=== PATIENT | female | born 1960 | race African-American/Black ===

== ENCOUNTER 2020-07-03 10:25 | Outpatient (REF) | payer OTHER, SELFPAY ==
[2020-07-03 11:52] LABS: Hematocrit 38.9 % (37-47); Hemoglobin 12.2 g/dl (12.0-16.0); Mean Corpuscular HGB Conc 31.4 g/dl (31.0-35.0); Mean Corpuscular Hemoglobin 30.6 pg (27.0-33.0); Mean Corpuscular Volume 97.5 fL (80-98); Mean Platelet Volume 9.3 fL (9.4-12.3); Platelet Count 352 X10*3/uL (160-400); Red Blood Count 3.99 X10*6/uL (4.20-5.50); Red Cell Distribution Width 13.8 % (11.0-16.0); White Blood Count 4.2 X10*3/uL (4.8-10.8)
[2020-07-03 11:56] LABS: Estimated Average Glucose 169 mg/dL; Hemoglobin A1c % 7.5 %
[2020-07-03 12:07] LABS: Alanine Aminotransferase 12 U/L (0-31); Albumin Level 4.2 g/dL (3.5-5.0); Alkaline Phosphatase 86 U/L (39-117); Anion Gap 14 (12-20); Aspartate Amino Transferase 14 U/L (5-31); Bilirubin Direct 0.2 mg/dL (0.0-0.5); Bilirubin Total 0.3 mg/dL (0.0-1.0); Blood Urea Nitrogen 17 mg/dL (9-16); Calcium 8.1 mg/dL (8.4-10.2); Carbon Dioxide 27 mmol/L (22-29); Chloride 105 mmol/L (96-108); Cholesterol 175 mg/dL; Estimated Glomerular Filt Rate 44; Glucose Random 121 mg/dL (60-115); HDL Cholesterol 32 mg/dL; LDL Cholesterol Calculated 117 mg/dl; Potassium 3.8 mmol/l (3.3-5.1); Sodium 142 mmol/L (135-145); Total Protein 7.4 g/dL (6.5-8.0); Triglycerides 134 mg/dL
== END 2020-07-03 10:26 | disposition home or self-care (01) ==
LOC: HO.LAB 10:25
PROVIDERS: PCP Internal Medicine; Visit Provider Internal Medicine
DX: E11.9 Type 2 diabetes mellitus without complications (principal); R21 Rash and other nonspecific skin eruption
CPT/HCPCS: 36415; 80048; 80061; 80076; 83036; 85027

== ENCOUNTER 2021-05-17 05:35 | Emergency (ER) | payer OTHER, SELFPAY ==
--- NOTE | ~2021-05-17 | XR_ITS ---
EXAMINATION: XR CHEST CLINICAL INFORMATION: Shortness of breath COMPARISON: January 07, 2017 TECHNIQUE: 2 views of the chest were obtained. FINDINGS: No significant abnormality is noted involving the heart, lungs, mediastinum, bony thorax or soft tissues. XR/XR chest 2V IMPRESSION: No acute disease.
[2021-05-17 05:40] VITALS: BP 152/74; PULSE 85; RESP 18; TEMP 37.1; O2SAT 97; BMI 33.1
[2021-05-17 06:35] LABS: COVID-19 Test Negative (Negative); IDNOW Serial# 9DD0AD1C
--- NOTE | 2021-05-17 07:24 | ECG_ITS ---
Test Reason : sob Blood Pressure : / mmHG Vent. Rate : 067 BPM Atrial Rate : 067 BPM P-R Int : 238 ms QRS Dur : 082 ms QT Int : 424 ms P-R-T Axes : 029 -19 -18 degrees QTc Int : 448 ms Sinus rhythm with 1st degree A-V block Minimal voltage criteria for LVH, may be normal variant ( R in aVL ) Nonspecific T wave abnormality Abnormal ECG T wave amplitude has decreased in Lateral leads Referred By: Niraj Taylor Electronically Signed By:KEYLA AREVALO MD
--- NOTE | 2021-05-17 07:25 | ED_ITS ---
HPI - General Adult General Chief complaint: Upper Respiratory Symptoms Stated complaint: SOB Not feeling well Time Seen by Provider: 05/17/21 07:08 Source: patient Mode of arrival: ambulatory Limitations: no limitations History of Present Illness HPI narrative: 60-year-old female who presents emergency department for evaluation of shortness of breath, dyspnea on exertion, ?feeling off ?. Patient states for the past week 1-2 weeks she has been feeling off. She states that she feels like her eyes are moving and she feels dizzy especially with change in position. She states she has an occasional pressure-like sensation in her head and in the back of her neck. She denied fever, chills, chest pain, rhinorrhea, cough, abdominal pain, nausea, vomiting or diarrhea. She states that she followed up with her eye doctor who thought she might have Graves disease and she was seen by her qa analyst who felt that her symptoms were not related to her hypothyroidism. The patient states that over the past 1-2 days she has been feeling short of breath at rest and having dyspnea on exertion. The patient states that she had a COVID-19 infection in October of 2019 and she had a Marbin Marbin COVID-19 sometime earlier this year. The patient states that she has been very compliant with a diabetic diet and shakes her glucose frequency, in reviewing her glucose monitor point of care glucose values, her glucoses ranged from 80 to 160 with majority of her t glucose values in the 100- 120 range. Related Data Previous Rx's Medication Instructions Recorded triamcinolone acetonide 0.5 % 1 appl TOPICAL BID #15 g 07/03/20 topical ointment metoprolol tartrate 25 mg tablet 25 mg PO TID #270 cap 12/08/20 metformin 750 mg tablet,extended 750 mg PO DAILY #90 cap 01/05/21 release 24 hr simvastatin 20 mg tablet 20 mg PO QPM #90 tab 01/05/21 hydrochlorothiazide 25 mg tablet 25 mg PO QAM #90 tab 01/14/21 levothyroxine 125 mcg tablet 125 mcg PO QAM #90 tab 01/14/21 glipizide 5 mg tablet 5 mg PO BID #180 cap 05/15/21 meclizine 25 mg tablet (Dramamine 25 mg PO TID PRN #20 tab 05/17/21 Less Drowsy) triamcinolone acetonide 0.5 % 1 appl TOPICAL BID 14 Days #30 g 05/17/21 topical cream Allergies Allergy/AdvReac Type Severity Reaction Status Date / Time No Known Allergies Allergy Verified 07/18/20 13:10 [No Known Allergies*] Review of Systems Review of Systems: Yes all other systems are reviewed and are negative [facility] Past Medical History [facility] Narrative: Social history: The patient denies tobacco use. She denies alcohol use. She denies drug use. Medical History Benign hypertension Class 3 severe obesity due to excess calories with body mass index (BMI) of 40.0 to 44.9 in adult Controlled diabetes mellitus Elevated low-density lipoprotein level Hypothyroidism, unspecified Surgical History History of D&C Family History Family History Father Diabetes Hypertension Mother Diabetes Acute kidney failure Hypertension Brother No problems noted. Social History Social History Alcohol intake: never Smoked in Last 30 Days: No Use of substances other than those prescribed or required for medical reasons: No Advance Directives: No Advance Directives Information Provided: No Patient : No Physical Exam Vital Signs: Vital Signs: Last Vital Signs Temp 98.7 F 05/17/21 05:40 Pulse 85 05/17/21 05:40 Resp 18 05/17/21 05:40 BP 152/74 H 05/17/21 05:40 Pulse Ox 97 05/17/21 05:40 Body Mass Index 33.1 Const: Other: Very pleasant cooperative female patient, answers all questions appropriately does not appear to be in distress. HENMT: Head: Yes normal to inspection, Yes normocephalic and Yes atraumatic Ears: external ears normal General nose exam: Normal external nose present Face and sinus: Yes normal facial exam Mouth: Normal oral and palatal mucosa present Throat: Yes posterior oropharynx normal Eyes: General: appearance normal, both eyes and all related structures Pupils: Equal, round and reactive pupils present Neck: Neck: Yes normal visual inspection, Yes no lymphadenopathy, Yes trachea midline and Yes supple Chest: Chest palpation & inspection: normal inspection of the chest and normal palpation of entire chest wall Resp: Effort & Inspection: normal respiratory effort and able to speak in complete sentences Auscultation: clear to auscultation bilaterally Cardio: Rate: regular rate Rhythm: regular rhythm Heart sounds: S1 normal heart sound present, S2 normal heart sound present and no murmurs GI: Inspection: Yes normal to inspection Palpation (GI): Soft to palpation, nontender and no guarding Auscultation: normal bowel sounds : General: Yes no CVA tenderness Back/Spine/Pelvis: Back: no CVA tenderness Skin: General skin exam: no rashes or lesions noted Neuro: Cranial nerves: Yes CN's II-XII intact bilaterally and Yes Equal, round and reactive pupils present Cognition (Neuro): normal cognition Motor exam (neuro): 5/5 motor strength present throughout Extrem: General: Yes normal to inspection Psych: Appearance: grossly normal Speech and movement: Normal speech and movement present Affect: normal affect Attitude: cooperative Thought process: Normal thought process present Thought content: Normal thought content present Course Course Course Narrative: 60-year-old female who presents emergency department for evaluation of shortness of breath, dyspnea on exertion headache, dizziness and generally feeling off. The patient's vital signs did reveal an elevated blood pressure of 152/74 otherwise was unremarkable with an O2 saturation of 97% on room air. Her physical examination was normal. Patient's COVID-19 test was negative. Given her age and comorbid conditions I did order a workup to include CBC, CMP, D-dimer, troponin, TSH with reflex of T4, urinalysis. 0915: The patient's laboratory evaluation was unremarkable except for a low white blood count of 3000. TSH was normal at 1.58. Troponin and D-dimer were below detectable limits. Chest x-ray revealed no acute cause for shortness of breath. Twelve EKG was unremarkable as well. I did discuss these findings with the patient. I suspect the patient has a viral syndrome and may be having some inner ear issues such as vertigo. The patient was started on meclizine 25 mg 3 times a day as needed for symptoms. She was given printed and verbal instructions and discharged home. The patient states that she had a rash on her arms that improved with triamcinolone cream, she now has the same rash on her hands and is requesting a refill for the triamcinolone cream. Medical Decision Making Lab Data Result diagrams: 05/17/21 07:54 05/17/21 07:54 Labs: Lab Results 05/17/21 05/17/21 05/17/21 Range/Units 05:51 07:54 07:54 WBC 3.0 L (4.8-10.8) X10*3/uL RBC 3.87 L (4.20-5.50) X10*6/uL Hgb 12.1 (12.0-16.0) g/dl Hct 37.1 (37-47) % MCV 95.9 (80-98) fL MCH 31.3 (27.0-33.0) pg MCHC 32.6 (31.0-35.0) g/dl RDW 13.3 (11.0-16.0) % Plt Count 264 (160-400) X10*3/uL MPV 8.7 L (9.4-12.3) fL Immature Gran % (Auto) 0.3 (0.0-0.4) % Neut % (Auto) 54.6 (45-73) % Lymph % (Auto) 32.9 (20-40) % Pacific % (Auto) 9.2 (2-11) % Eos % (Auto) 2.0 (0-4) % Baso % (Auto) 1.0 (0-2) % Lymph # (Auto) 1.0 L (1.2-4.9) X10*3/uL Pacific # (Auto) 0.3 (0.1-1.2) X10*3/uL Eos # (Auto) 0.1 (0.0-0.4) X10*3/uL Baso # (Auto) 0.0 (0.0-0.2) X10*3/uL Abs Immat Gran (auto) 0.01 (0.00-0.03) X10*3/uL Absolute Neuts (auto) 1.6 L (2.0-8.3) X10*3/uL Absolute Nucleated RBC 0.000 (0.0-0.012) X10*3/uL Nucleated RBC % (auto) 0.0 (0.0-0.2) /100WBC D-Dimer NG/ML Sodium 139 (135-145) mmol/L Potassium 3.8 (3.3-5.1) mmol/L Chloride 104 (96-108) mmol/L Carbon Dioxide 25 (22-29) mmol/L Anion Gap 14 (12-20) BUN 12 (9-16) mg/dL Creatinine 0.93 (0.5-1.4) mg/dL Estim Creat Clear Calc 71.3 Estimated GFR > 60 Random Glucose 136 H (60-115) mg/dL Calcium 8.5 (8.4-10.2) mg/dL Total Bilirubin 0.6 (0.0-1.0) mg/dL AST 14 (5-31) U/L ALT 9 (0-31) U/L Alkaline Phosphatase 74 (39-117) U/L Troponin I High Sens (<3.5-17.0) ng/L Total Protein 7.1 (6.5-8.0) g/dL Albumin 3.9 (3.5-5.0) g/dL TSH 1.58 (0.32-4.0) uIU/mL COVID-19 (JOSE) Negative (Negative) COVID-19 Clin Com See Note 05/17/21 05/17/21 Range/Units 07:54 07:54 WBC (4.8-10.8) X10*3/uL RBC (4.20-5.50) X10*6/uL Hgb (12.0-16.0) g/dl Hct (37-47) % MCV (80-98) fL MCH (27.0-33.0) pg MCHC (31.0-35.0) g/dl RDW (11.0-16.0) % Plt Count (160-400) X10*3/uL MPV (9.4-12.3) fL Immature Gran % (Auto) (0.0-0.4) % Neut % (Auto) (45-73) % Lymph % (Auto) (20-40) % Pacific % (Auto) (2-11) % Eos % (Auto) (0-4) % Baso % (Auto) (0-2) % Lymph # (Auto) (1.2-4.9) X10*3/uL Pacific # (Auto) (0.1-1.2) X10*3/uL Eos # (Auto) (0.0-0.4) X10*3/uL Baso # (Auto) (0.0-0.2) X10*3/uL Abs Immat Gran (auto) (0.00-0.03) X10*3/uL Absolute Neuts (auto) (2.0-8.3) X10*3/uL Absolute Nucleated RBC (0.0-0.012) X10*3/uL Nucleated RBC % (auto) (0.0-0.2) /100WBC D-Dimer < 200 NG/ML Sodium (135-145) mmol/L Potassium (3.3-5.1) mmol/L Chloride (96-108) mmol/L Carbon Dioxide (22-29) mmol/L Anion Gap (12-20) BUN (9-16) mg/dL Creatinine (0.5-1.4) mg/dL Estim Creat Clear Calc Estimated GFR Random Glucose (60-115) mg/dL Calcium (8.4-10.2) mg/dL Total Bilirubin (0.0-1.0) mg/dL AST (5-31) U/L ALT (0-31) U/L Alkaline Phosphatase (39-117) U/L Troponin I High Sens < 3.5 (<3.5-17.0) ng/L Total Protein (6.5-8.0) g/dL Albumin (3.5-5.0) g/dL TSH (0.32-4.0) uIU/mL COVID-19 (JOSE) (Negative) COVID-19 Clin Com ECG Data Attestation: I personally reviewed and interpreted this ECG as follows: Interpretation: 0731: Sinus rhythm rate of 67, first-degree AV block with NJ interval of 235 milliseconds, normal QRS of 82 milliseconds, no ST segment elevation, no ST segment depression, no PACs, no PVCs, no Q-waves. Discharge Plan Discharge Clinical Impression: Viral infection, Vertigo, Acute dyspnea, Rash of both hands Patient Disposition: Home, Self-Care Instructions: Vertigo (ED), Viral Syndrome (ED) Additional Instructions: Your laboratory evaluation was unremarkable. Your EKG was normal. Your chest x-ray did not reveal any signs of pneumonia or a cause for her shortness of breath. At this time I suspect that you have a virus that is causing your symptoms. Sometimes a virus can affect the inner ear and cause lightheadedness and dizziness. I am going to treat you with Dramamine (meclizine) 25 mg pills, take 1 pill 3 times a day for the next 2-3 days to see if this improves her symptoms. Follow-up with your doctor in 2 days. Please return to the emergency department if your symptoms get worse or if you develop any symptoms that are concerning to you. Prescriptions: New meclizine [Dramamine Less Drowsy] 25 mg tablet 25 mg PO TID PRN (Reason: dizziness) Qty: 20 RF: 0 triamcinolone acetonide 0.5 % cream 1 appl topical BID 14 Days Qty: 30 RF: 0 No Action metoprolol tartrate 25 mg tablet 25 mg PO TID Qty: 270 RF: 1 simvastatin 20 mg tablet 20 mg PO QPM Qty: 90 RF: 1 metformin 750 mg tablet extended release 24 hr 750 mg PO DAILY Qty: 90 RF: 1 hydrochlorothiazide 25 mg tablet 25 mg PO QAM Qty: 90 RF: 1 levothyroxine 125 mcg tablet 125 mcg PO QAM Qty: 90 RF: 1 glipizide 5 mg tablet 5 mg PO BID Qty: 180 RF: 1 triamcinolone acetonide 0.5 % ointment 1 appl topical BID Qty: 15 RF: 1 Discharge Date/Time: 05/17/21 09:32
[2021-05-17 07:59] LABS: MANUAL DIFF FLAG NO
[2021-05-17 08:03] LABS: Eosinophils Absolute Auto 0.1 X10*3/uL (0.0-0.4); Hematocrit 37.1 % (37-47); Hemoglobin 12.1 g/dl (12.0-16.0); Imm Gran Abs Auto 0.01 X10*3/uL (0.00-0.03); Imm Gran Pct Auto 0.3 % (0.0-0.4); Lymphocytes Percent Auto 32.9 % (20-40); Mean Corpuscular HGB Conc 32.6 g/dl (31.0-35.0); Mean Corpuscular Hemoglobin 31.3 pg (27.0-33.0); Mean Corpuscular Volume 95.9 fL (80-98); Mean Platelet Volume 8.7 fL (9.4-12.3); Monocytes Absolute Auto 0.3 X10*3/uL (0.1-1.2); Monocytes Percent Auto 9.2 % (2-11); Neutrophils Absolute Auto 1.6 X10*3/uL (2.0-8.3); Neutrophils Percent Auto 54.6 % (45-73); Platelet Count 264 X10*3/uL (160-400); Red Blood Count 3.87 X10*6/uL (4.20-5.50); Red Cell Distribution Width 13.3 % (11.0-16.0)
[2021-05-17 08:11] LABS: D Dimer < 200 NG/ML
[2021-05-17 08:20] LABS: Troponin-I High Sensitivity < 3.5 ng/L (<3.5-17.0)
[2021-05-17 08:23] LABS: Alanine Aminotransferase 9 U/L (0-31); Albumin Level 3.9 g/dL (3.5-5.0); Alkaline Phosphatase 74 U/L (39-117); Anion Gap 14 (12-20); Aspartate Amino Transferase 14 U/L (5-31); Bilirubin Total 0.6 mg/dL (0.0-1.0); Blood Urea Nitrogen 12 mg/dL (9-16); Calcium 8.5 mg/dL (8.4-10.2); Carbon Dioxide 25 mmol/L (22-29); Chloride 104 mmol/L (96-108); Creatinine Clr Calc Pharmacy 71.3; Estimated Glomerular Filt Rate > 60; Glucose Random 136 mg/dL (60-115); Potassium 3.8 mmol/L (3.3-5.1); Sodium 139 mmol/L (135-145); Total Protein 7.1 g/dL (6.5-8.0)
[2021-05-17 08:43] LABS: TSH reflex Free T4 1.58 uIU/mL (0.32-4.0)
== END 2021-05-17 09:32 | disposition home or self-care (01) ==
PROVIDERS: Emergency Provider Emergency Medicine Emergency Medical Services; PCP Internal Medicine
DX: B34.9 Viral infection, unspecified (principal); R21 Rash and other nonspecific skin eruption; R06.00 Dyspnea, unspecified; Z20.822 Contact with and (suspected) exposure to COVID-19; Z86.16 Personal history of COVID-19; Z79.899 Other long term (current) drug therapy
CPT/HCPCS: 36415; 71046; 80053; 84443; 84484; 85025; 85379; 87635; 93005; 99284

== ENCOUNTER 2021-05-24 09:30 | Emergency (ER) | payer OTHER, SELFPAY ==
--- NOTE | ~2021-05-24 | CT_ITS ---
EXAMINATION: CT HEAD WITHOUT CONTRAST CLINICAL INFORMATION: Dizziness for one week. Rule out stroke. COMPARISON: Previous PET/CT scan and brain MRI 2018 TECHNIQUE: Contiguous axial imaging was performed from the skull base to vertex without intravenous administration of contrast. This CT examination was performed using dose optimization techniques as appropriate, variously including the following: *Automated exposure control *Adjustment of mA and/or kV according to patient size (this includes techniques or standardized protocols for targeted exams where dose is matched to indication/reason for exam; i.e. extremities or head) *Use of iterative reconstruction technique DLP: 563 mGy-cm FINDINGS: There is no evidence of an extra-axial collection. There is no evidence of intra-axial or extra-axial hemorrhage. Ventricles and extra-axial CSF spaces are appropriate. Callejas-white matter differentiation is normal. No mass, mass effect or infarct is seen. On the sagittal reconstructed images, the cerebellar tonsils appear slightly low lying. This is similar to previous exams. There is a prominent left lacrimal gland. This is similar to previous exams as well. Bony structures are unremarkable. The paranasal sinuses, mastoid air cells and middle ears are clear. CT/CT head/brain wo con IMPRESSION: No acute intracranial findings and no change from previous exams.
[2021-05-24 09:39] VITALS: BP 120/80; BP 160/72; PULSE 76; PULSE 78; RESP 16; TEMP 37.1; O2SAT 98; BMI 38.6
--- NOTE | 2021-05-24 09:42 | ECG_ITS ---
Test Reason : dizziness Blood Pressure : / mmHG Vent. Rate : 077 BPM Atrial Rate : 077 BPM P-R Int : 226 ms QRS Dur : 080 ms QT Int : 380 ms P-R-T Axes : 076 -15 -16 degrees QTc Int : 430 ms Sinus rhythm with 1st degree A-V block Minimal voltage criteria for LVH, may be normal variant ( R in aVL ) Nonspecific T wave abnormality Left axis deviation Abnormal ECG No significant changes seen Referred By: Generic ED Physician Electronically Signed By:KEYLA AREVALO MD
[2021-05-24 11:00] VITALS: BP 154/73; PULSE 76; RESP 18; TEMP 36.1; O2SAT 98
[2021-05-24 11:01] VITALS: BP 149/73; PULSE 81; RESP 18
[2021-05-24 11:03] VITALS: BP 142/83; PULSE 92
--- NOTE | 2021-05-24 11:27 | ED.DIZZY ---
HPI - Dizziness General Chief Complaint: Dizziness Stated Complaint: DIZZY X'S 2 WEEKS Time Seen by Provider: 05/24/21 11:00 Source: patient Mode of arrival: ambulatory Limitations: no limitations History of Present Illness HPI Narrative: 60-year-old female who presents emergency department for evaluation of sudden onset of dizziness and a burning sensation in neck. The patient was seen in the emergency department by me on 05/17/2021 for evaluation of shortness of breath, dyspnea on exertion, feeling off and dizziness. The patient's evaluation included normal TSH, troponin, D-dimer, comprehensive metabolic panel. TSH was normal. WBC was slightly low at 3000. EKG was unremarkable. That time I suspect patient had a viral infection and labyrinthitis causing vertigo. Patient states that she took meclizine for approximately 2-3 days but did not change her dizziness if she stopped. She states that this morning she was watching TV at 8:30 a.m. when she had a sudden popping sensation her left ear and had a room spinning vertigo since sensation. She states that the dizziness has been constant and does not change with position change her head movement. She also developed a new sensation which she describes as a burning sensation located in her cervical spine. She states she has a history of a cervical syrinx detected on MRI in the past. She states that her vision feels ?foggy ?. She denied numbness, weakness, or loss of bowel or bladder control. She states she has had nausea associated with the dizziness but no other symptoms. She denied fever, chills, rhinorrhea, cough, chest pain. She states that her dyspnea on exertion and shortness of breath have improved from the previous visit. The patient received her influenza vaccine yesterday. Related Data Previous Rx's Medication Instructions Recorded metoprolol tartrate 25 mg tablet 25 mg PO TID #270 cap 12/08/20 metformin 750 mg tablet,extended 750 mg PO DAILY #90 cap 01/05/21 release 24 hr simvastatin 20 mg tablet 20 mg PO QPM #90 tab 01/05/21 hydrochlorothiazide 25 mg tablet 25 mg PO QAM #90 tab 01/14/21 levothyroxine 125 mcg tablet 125 mcg PO QAM #90 tab 01/14/21 glipizide 5 mg tablet 5 mg PO BID #180 cap 05/15/21 meclizine 25 mg tablet (Dramamine 25 mg PO TID PRN #20 tab 05/17/21 Less Drowsy) triamcinolone acetonide 0.5 % 1 appl TOPICAL BID 14 Days #30 g 05/17/21 topical cream diazepam 2 mg tablet 2 mg PO TID PRN #14 tab 05/24/21 meclizine 25 mg tablet (Dramamine 25 mg PO TID PRN #20 tab 05/24/21 Less Drowsy) Allergies Allergy/AdvReac Type Severity Reaction Status Date / Time No Known Allergies Allergy Verified 05/23/21 13:20 [No Known Allergies*] Review of Systems Review of Systems: Yes all other systems are reviewed and are negative REPLACED BY [facility] Past Medical History REPLACED BY [facility] Narrative: Social history: She denies tobacco, alcohol and drug use. Medical History Benign hypertension Class 3 severe obesity due to excess calories with body mass index (BMI) of 40.0 to 44.9 in adult Controlled diabetes mellitus Elevated low-density lipoprotein level Hypothyroidism, unspecified Surgical History History of D&C Family History Family History Father Diabetes Hypertension Mother Diabetes Acute kidney failure Hypertension Brother No problems noted. Social History Social History Housing: Apartment Alcohol intake: never Patient Tobacco Use Status: Never used Tobacco e-Cigarette/Vaping Use: Never Used Second Hand Smoke Exposure: No Advance Directives: Yes Advance Directives Information Provided: Yes Advance Directives on File: No service: No Current occupational status: retired Physical Exam Vital Signs: Vital Signs: Last Vital Signs Temp 102.6 F H 05/24/21 12:08 Pulse 92 05/24/21 11:03 Resp 18 05/24/21 11:01 BP 142/83 H 05/24/21 11:03 Pulse Ox 98 05/24/21 11:00 Body Mass Index 38.6 Const: General: cooperative and no acute distress Orientation/consciousness: oriented to person and oriented to place Limitations: no limitations HENMT: Head: Yes normal to inspection, Yes normocephalic and Yes atraumatic Ears: external ears normal General nose exam: Normal external nose present Face and sinus: Yes normal facial exam Mouth: Normal oral and palatal mucosa present Throat: Yes posterior oropharynx normal Eyes: General: appearance normal, both eyes and all related structures Pupils: Equal, round and reactive pupils present Neck: Neck: Yes normal visual inspection, Yes no lymphadenopathy, Yes trachea midline and Yes supple Chest: Chest palpation & inspection: normal inspection of the chest and normal palpation of entire chest wall Resp: Effort & Inspection: normal respiratory effort and able to speak in complete sentences Auscultation: clear to auscultation bilaterally Cardio: Rate: regular rate Rhythm: regular rhythm Heart sounds: S1 normal heart sound present, S2 normal heart sound present and no murmurs GI: Inspection: Yes normal to inspection Palpation (GI): Soft to palpation, nontender and no guarding Auscultation: normal bowel sounds : General: Yes no CVA tenderness Back/Spine/Pelvis: Back: no CVA tenderness Skin: General skin exam: no rashes or lesions noted Neuro: General: oriented to person and oriented to place Cranial nerves: Yes CN's II-XII intact bilaterally and Yes Equal, round and reactive pupils present Cognition (Neuro): normal cognition Motor exam (neuro): 5/5 motor strength present throughout Coordination: [id number] test normal, [id number] test normal, No sways with eyes open, Romberg test negative and other (Gait is normal) Extrem: General: Yes normal to inspection Psych: Appearance: grossly normal Speech and movement: Normal speech and movement present Affect: normal affect Attitude: cooperative Thought process: Normal thought process present Thought content: Normal thought content present Course Course Course Narrative: 60-year-old female who presents emergency department for evaluation intermittent dizziness x1 week with symptoms that became worse this morning at 8:30 a.m. with a new symptom of a burning sensation in her cervical spine. Patient was seen by me on 05/17/2021 with a negative workup as per the HPI. The patient's vital signs did reveal elevated blood pressure of 160/72 but the patient does have essential hypertension, vital signs were otherwise unremarkable. Patient's physical examination was normal without any focal neurologic findings or cerebellar findings. I ordered a CT scan of the head to rule out stroke, also ordered an EKG, CBC, CMP, troponin. Patient was ordered to get normal saline x1 L and meclizine 25 mg orally. 1416: The patient's laboratory evaluation was unremarkable. Patient's high sensitivity troponin was detectable at 3.5 but not elevated. The patient's [address] scan of the brain revealed no acute findings. I did discuss the workup with the patient, at this time I believe that her symptoms are still consistent with positional vertigo. The patient was advised to take meclizine 25 mg 3 times a day for 4 days. She is also given prescription for Valium 3 mg, 1 pill every 6 hours as needed for dizziness not relieved by the meclizine. She was given verbal and printed instructions and discharged home. MDM - Dizziness Lab Data Result diagrams: 05/24/21 11:36 05/24/21 11:36 Labs: Lab Results 05/24/21 05/24/21 05/24/21 Range/Units 11:36 11:36 11:36 WBC 3.9 L (4.8-10.8) X10*3/uL RBC 3.72 L (4.20-5.50) X10*6/uL Hgb 11.9 L (12.0-16.0) g/dl Hct 36.4 L (37-47) % MCV 97.8 (80-98) fL MCH 32.0 (27.0-33.0) pg MCHC 32.7 (31.0-35.0) g/dl RDW 13.3 (11.0-16.0) % Plt Count 262 (160-400) X10*3/uL MPV 8.6 L (9.4-12.3) fL Immature Gran % (Auto) 0.3 (0.0-0.4) % Neut % (Auto) 64.2 (45-73) % Lymph % (Auto) 25.2 (20-40) % Reeves % (Auto) 6.7 (2-11) % Eos % (Auto) 3.1 (0-4) % Baso % (Auto) 0.5 (0-2) % Lymph # (Auto) 1.0 L (1.2-4.9) X10*3/uL Reeves # (Auto) 0.3 (0.1-1.2) X10*3/uL Eos # (Auto) 0.1 (0.0-0.4) X10*3/uL Baso # (Auto) 0.0 (0.0-0.2) X10*3/uL Abs Immat Gran (auto) 0.01 (0.00-0.03) X10*3/uL Absolute Neuts (auto) 2.5 (2.0-8.3) X10*3/uL Absolute Nucleated RBC 0.000 (0.0-0.012) X10*3/uL Nucleated RBC % (auto) 0.0 (0.0-0.2) /100WBC Sodium 138 (135-145) mmol/L Potassium 3.8 (3.3-5.1) mmol/L Chloride 106 (96-108) mmol/L Carbon Dioxide 23 (22-29) mmol/L Anion Gap 13 (12-20) BUN 18 H (9-16) mg/dL Creatinine 1.14 (0.5-1.4) mg/dL Estim Creat Clear Calc 63.2 Estimated GFR 49 Random Glucose 110 (60-115) mg/dL Calcium 8.1 L (8.4-10.2) mg/dL Total Bilirubin 0.2 (0.0-1.0) mg/dL AST 13 (5-31) U/L ALT 9 (0-31) U/L Alkaline Phosphatase 76 (39-117) U/L Troponin I High Sens 3.5 (<3.5-17.0) ng/L Total Protein 7.1 (6.5-8.0) g/dL Albumin 3.9 (3.5-5.0) g/dL ECG Data Interpretation: 0947: Sinus rhythm with a first-degree AV block, rate of 77, NC interval was prolonged to 226 milliseconds. QRS duration QTC intervals are normal. No ST segment elevation, no ST segment depression, nonspecific T-wave flattening the 3 through V6, no PACs, no PVCs. Discharge Plan Discharge Clinical Impression: Benign paroxysmal positional vertigo Patient Disposition: Home, Self-Care Instructions: Benign Paroxysmal Positional Vertigo (ED) Additional Instructions: Your laboratory evaluation today was unremarkable Your EKG was normal. The CT scan of your brain without IV contrast did not reveal any significant abnormalities which is reassuring. Your symptoms are consistent with benign positional vertigo which is usually caused by dysfunction of the inner ear. Take meclizine 25 mg pills, 1 pill 3 times a day for 4 days. For dizziness not relieved by meclizine take Valium (diazepam) 2 mg pills, 1 pill every 6 hours as needed. Follow-up with your doctor in 2 days. Please return to the emergency department if your symptoms get worse or if you develop any symptoms that are concerning to you. Prescriptions: New meclizine [Dramamine Less Drowsy] 25 mg tablet 25 mg PO TID PRN (Reason: dizziness) Qty: 20 RF: 0 diazepam 2 mg tablet 2 mg PO TID PRN (Reason: dizziness) Qty: 14 RF: 0 No Action metoprolol tartrate 25 mg tablet 25 mg PO TID Qty: 270 RF: 1 simvastatin 20 mg tablet 20 mg PO QPM Qty: 90 RF: 1 metformin 750 mg tablet extended release 24 hr 750 mg PO DAILY Qty: 90 RF: 1 hydrochlorothiazide 25 mg tablet 25 mg PO QAM Qty: 90 RF: 1 levothyroxine 125 mcg tablet 125 mcg PO QAM Qty: 90 RF: 1 glipizide 5 mg tablet 5 mg PO BID Qty: 180 RF: 1 meclizine [Dramamine Less Drowsy] 25 mg tablet 25 mg PO TID PRN (Reason: dizziness) Qty: 20 RF: 0 triamcinolone acetonide 0.5 % cream 1 appl topical BID 14 Days Qty: 30 RF: 0
[2021-05-24] MEDS: 0.9 % Sodium Chloride 1,000 ML 999 ML IV (11:36)
[2021-05-24] MEDS: Meclizine HCl 25 MG TABLET PO (11:37)
[2021-05-24 11:41] LABS: MANUAL DIFF FLAG NO
[2021-05-24 11:43] LABS: Basophils Percent Auto 0.5 % (0-2); Eosinophils Absolute Auto 0.1 X10*3/uL (0.0-0.4); Eosinophils Percent Auto 3.1 % (0-4); Hematocrit 36.4 % (37-47); Hemoglobin 11.9 g/dl (12.0-16.0); Imm Gran Abs Auto 0.01 X10*3/uL (0.00-0.03); Imm Gran Pct Auto 0.3 % (0.0-0.4); Lymphocytes Percent Auto 25.2 % (20-40); Mean Corpuscular HGB Conc 32.7 g/dl (31.0-35.0); Mean Corpuscular Volume 97.8 fL (80-98); Mean Platelet Volume 8.6 fL (9.4-12.3); Monocytes Absolute Auto 0.3 X10*3/uL (0.1-1.2); Monocytes Percent Auto 6.7 % (2-11); Neutrophils Absolute Auto 2.5 X10*3/uL (2.0-8.3); Neutrophils Percent Auto 64.2 % (45-73); Platelet Count 262 X10*3/uL (160-400); Red Blood Count 3.72 X10*6/uL (4.20-5.50); Red Cell Distribution Width 13.3 % (11.0-16.0); White Blood Count 3.9 X10*3/uL (4.8-10.8)
[2021-05-24 11:58] LABS: Alanine Aminotransferase 9 U/L (0-31); Albumin Level 3.9 g/dL (3.5-5.0); Alkaline Phosphatase 76 U/L (39-117); Anion Gap 13 (12-20); Aspartate Amino Transferase 13 U/L (5-31); Bilirubin Total 0.2 mg/dL (0.0-1.0); Blood Urea Nitrogen 18 mg/dL (9-16); Calcium 8.1 mg/dL (8.4-10.2); Carbon Dioxide 23 mmol/L (22-29); Chloride 106 mmol/L (96-108); Creatinine Clr Calc Pharmacy 63.2; Estimated Glomerular Filt Rate 49; Glucose Random 110 mg/dL (60-115); Potassium 3.8 mmol/L (3.3-5.1); Sodium 138 mmol/L (135-145); Total Protein 7.1 g/dL (6.5-8.0)
[2021-05-24 12:04] LABS: Troponin-I High Sensitivity 3.5 ng/L (<3.5-17.0)
[2021-05-24 12:08] VITALS: TEMP 39.2
== END 2021-05-24 14:37 | disposition home or self-care (01) ==
PROVIDERS: Emergency Provider Emergency Medicine Emergency Medical Services; PCP Internal Medicine
DX: H81.10 Benign paroxysmal vertigo, unspecified ear (principal); E11.9 Type 2 diabetes mellitus without complications
CPT/HCPCS: 36415; 70450; 80053; 84484; 85025; 93005; 96360; 99283; 99284

== ENCOUNTER 2023-06-06 14:23 | Outpatient (AMB) | payer OTHER, SELFPAY ==
[2023-06-06 14:32] VITALS: BP 156/90; PULSE 79; O2SAT 99; BMI 38.8
--- NOTE | 2023-06-06 14:32 | A.OFFPC_ITS ---
Vital Signs 06/06/23 14:32 Height 5 ft 5 in Weight 233 lb BMI 38.8 BP 156/90 H Blood Pressure Location Lt brachial Position Sitting Pulse 79 Pulse Source Pulse Oximeter Pulse Oximetry (%) 99 Oxygen Delivery Method Room Air Intake Visit Reasons: PE Ultrasonic Cleaner: Not Required per policy Accompanied by: Self / Same As Patient Allergies Metformin Adverse Reaction (Intermediate, Uncoded 06/06/23 15:02) Rash Medication List - Last Reconciled 06/06/23 by BESSY Vazquez glipizide 5 mg PO BID hydrochlorothiazide 25 mg PO QAM levothyroxine 125 mcg PO QAM metoprolol tartrate 25 mg PO TID simvastatin 20 mg PO QPM Tobacco use date assessed: 06/06/23 Dental Screening Dental Screen Date: 06/06/23 Did you have a dental visit in the last 12 months?: No Did you have a dental problem in the last 6 months where you did not have access to dental care?: No Was dental information given to patient?: Patient has dentist HPI HPI Comments History of Present Illness Details 62-year-old female past medical history significant for controlled diabetes mellitus, eczema and obesity. Patient of last seen last year, patient presents today for physical exam. Patient reports that she weaned herself off of her metformin as she states that caused her to have a rash last August. Patient states BS 90-120's. b/p elevated and office today 156/90. Patient reports she checks her blood pressures at home and denies any elevated blood pressures. Patient reports she has had left ear pain x2 days denies any fever, chills does report some nasal congestion at night. Patient states left- sided headache related to her ear pain takes [id number] Tylenol for relief of this. TMs normal bilaterally on exam. Signs and symptoms reviewed with patient when to seek medical attention or follow-up. Patient reports she is due for mammogram, mammogram ordered ordered Colonoscopy: Denied colonoscopy screening, agreeable to have Cologuard test completed. Cologuard ordered. unknown last Pap smear: Recommended follow-up with OBGYN Eye exam: Follows for annual diabetic eye exams yearly with Dr. Siddiqui Fasting labs ordered. [facility] Medical History Class 3 severe obesity due to excess calories with body mass index (BMI) of 40.0 to 44.9 in adult Hypothyroidism, unspecified Elevated low-density lipoprotein level Benign hypertension Controlled diabetes mellitus Surgical History History of D&C Family History Father Diabetes Hypertension Mother Diabetes Acute kidney failure Hypertension Brother No problems noted. Social History Housing: Apartment Alcohol intake: never Patient Tobacco Use Status: Never used Tobacco e-Cigarette/Vaping Use: Never Used Second Hand Smoke Exposure: No service: No Current occupational status: retired Cognitive needs: No Hearing needs: No Vision needs: Yes (Reading Glasses) Questionnaire PHQ-9 Over the last 2 weeks, how often have you been bothered by any of the following problems? 1. Little interest or pleasure in doing things: not at all 2. Feeling down, depressed, or hopeless: not at all 3. Trouble falling or staying asleep, or sleeping too much: not at all 4. Feeling tired or having little energy: not at all 5. Poor appetite or overeating: not at all 6. Feeling bad about yourself - or that you are a failure or have let yourself or your family down: not at all 7. Trouble concentrating on things, such as reading the newspaper or watching television: not at all 8. Moving or speaking so slowly that other people could have noticed. Or the opposite - being so fidgety or restless that you have been moving around a lot more than usual: not at all 9. Thoughts that you would be better off or of hurting yourself in some way: not at all Total score: 0 Depression Screening Interpretation: Negative Depression Screening Done: Yes 17971 - PHQ-9 Billing: Yes Source: Developed by Drs. Omar Tijerina, Jacqui Peterson, Scar Hooker and colleagues, with an educational suleiman from [employer]. Thrive Questionnaire Date Thrive assessed: 06/06/23 I am a: Patient What is your living situation today?: I have a steady place to live Within the past 12 months, did the food you bought not last and you didn't have the money to get more?: Never true Within the past 12 months, did you worry whether your food would run out before you got money to buy more?: Never true Do you have trouble paying for medicines?: No Do you have trouble getting transportation to medical appointments?: No Do you have trouble paying your heating and electricity bill?: No Do you have trouble taking care of your child, family member or friend?: No Do you have trouble with day-to-day activities such as bathing, preparing meals, shopping, managing finances, etc.?: No Are you currently unemployed and looking for a job?: No Are you interested in more education?: No Please select the resources that you would like help with: None AUDIT C Alcohol Use Questionnaire (AUDIT-C) 1. How often do you have a drink containing alcohol?: Never Total Score: 0 CURTIS-7 AMB Questionnaire CURTIS-7 Date CURTIS - 7 assessed: 06/06/23 Feeling nervous, anxious, or on edge: 0 = Not at all Not being able to stop or control worryin = Not at all Worrying too much about different things: 0 = Not at all Trouble relaxin = Not at all Being so restless that it is hard to sit still: 0 = Not at all Becoming easily annoyed or irritable: 0 = Not at all Feeling afraid as if something awful might happen: 0 = Not at all Total CURTIS-7 score (0-4 normal; 5-9 mild; 10-14 moderate; 15-21 severe): 0 Source: Developed by Drs. Omar Tijerina, Jacqui Peterson, Scar Hooker and colleagues, with an educational suleiman from [employer]. CURTIS-7 Assessment Billing CURTIS-7 Assessment Tool: CURTIS-7 Assessment 57837 Review of Systems Const Denies chills, Denies fatigue, Denies fever(s) and Denies poor appetite Eyes Denies no additional complaints ENT Reports Normal hearing present Card Denies chest pain, Denies syncope, Denies rapid heart rate and Denies dyspnea Resp Denies cough and Denies dyspnea GI Denies change in stool character, Denies constipation, Denies diarrhea, Denies nausea and Denies vomiting Denies urinary frequency, Denies dysuria and Denies urinary urgency Neuro Reports Normal hearing present, Denies confusion and Denies syncope Psych Denies confusion Endo Denies fatigue Physical exam (Primary Care) Vital Signs: Last Vital Signs Pulse 79 06/06/23 14:32 BP 156/90 H 06/06/23 14:32 Pulse Ox 99 06/06/23 14:32 Oxygen Delivery Method Room Air 06/06/23 14:32 BMI result Body Mass Index 38.8 Tobacco/Smoking Status: Tobacco use Status Tobacco use date assessed 06/13/22 06/13/22 10:35 Patient Tobacco Use Status Never used Tobacco 06/13/22 10:35 e-Cigarette/Vaping Use Never Used 06/13/22 10:35 Depression Screening Interpretation: Negative Thrive Assessment: Date of Thrive Assessment Date Thrive assessed 06/13/22 06/13/22 10:35 Const General: No confusion Orientation/consciousness: No confusion HENMT Head: Yes normocephalic and Yes atraumatic Ears: external ears normal and TM's normal bilaterally General nose exam: Normal external nose present and Normal nasal mucous membranes and turbinates present Face and sinus: Yes normal facial exam and Yes sinuses nontender Mouth: moist mucous membranes Throat: Yes tonsils normal Eyes Conjunctivae: conjunctivae normal Sclerae: sclerae normal Pupils: Equal, round and reactive pupils present and Pupils normal by confrontation EOM: EOMs intact bilaterally Direct Ophthalmoscopy: normal light reflex Neck Neck: Yes no lymphadenopathy and Yes supple Thyroid: Thyroid normal Chest Chest palpation & inspection: normal inspection of the chest Resp Effort & Inspection: normal respiratory effort Auscultation: clear to auscultation bilaterally, no crackles, no rhonchi and no wheezes Cardio Rate: regular rate Rhythm: regular rhythm Peripheral pulses: radial pulses present and dorsalis pedis present GI Inspection: Yes normal to inspection Palpation (GI): Soft to palpation, nontender and No hepatosplenomegaly present Auscultation: normoactive bowel sounds Skin General skin exam: no rashes or lesions noted Neuro General: No confusion Cranial nerves: Yes Equal, round and reactive pupils present and Yes Normal hearing present Cognition (Neuro): normal cognition Gait exam (Neuro): Normal gait present Motor exam (neuro): 5/5 motor strength present throughout Deep tendon reflexes (DTR's): Right brachioradialis reflex intensity grade: 2+, Left brachioradialis reflex intensity grade: 2+, Right patellar reflex intensity grade: 2+ and Left patellar reflex intensity grade: 2+ Extrem General: No edema Assessment and Plan Assessment & Plan (1) Class 2 severe obesity with body mass index (BMI) of 35 to 39.9 with serious comorbidity: Code(s): E66.01 - Morbid (severe) obesity due to excess calories Plan: Diet and exercise to reduce BMI (2) Annual physical exam: Code(s): Z00.00 - Encounter for general adult medical examination without abnormal findings Plan: Follow-up in 1 year. (3) Controlled diabetes mellitus: Code(s): E11.9 - Type 2 diabetes mellitus without complications Qualifiers: Diabetes mellitus type: other specified (including ANNE-MARIE) Diabetes mellitus penitentiary insulin use: without penitentiary use Plan: Hemoglobin A1c and fasting blood sugar ordered. Orders: Orders Complete Blood Count no Diff Today Z13.0 - Encounter for screening for diseases of the blood and blood-forming organs and certain disorders involving the immune mechanism Lipid Panel Today Z13.220 - Encounter for screening for lipoid disorders TSH reflex Free T4 Today Z13.29 - Encounter for screening for other suspected endocrine disorder Hemoglobin A1c Today E11.9 - Type 2 diabetes mellitus without complications MM screening mammo BI Today Z12.31 - Encounter for screening mammogram for malignant neoplasm of breast [facility] [place]. Panel Fast Today E11.9 - Type 2 diabetes mellitus without complications Microalbumin, Random (w Creat) Today E11.9 - Type 2 diabetes mellitus without complications Referrals Cologuard Test Z12.11 - Encounter for screening for malignant neoplasm of colon Coding Level of Care Code Est Pt Prev Care 40-64y(81717) Diagnoses Class 2 severe obesity with body mass index (BMI) of 35 to 39.9 with serious comorbidity E66.01 Annual physical exam Z00.00 Controlled diabetes mellitus E11.9 Diabetes mellitus type: other specified (including ANNE-MARIE) Diabetes mellitus intermediate frame tender insulin use: without penitentiary use Additional Codes CURTIS-7 Assessment Billing - CURTIS-7 Assessment Tool: CURTIS-7 Assessment [id number] ([id number])
== END 2023-06-06 14:58 | disposition home or self-care (01) ==
PROVIDERS: PCP Internal Medicine; Visit Provider Nurse Practitioner Family
DX: Z00.00 Encounter for general adult medical examination without abnormal findings (principal); E66.01 Morbid (severe) obesity due to excess calories; E11.9 Type 2 diabetes mellitus without complications; Z68.38 Body mass index [BMI] 38.0-38.9, adult
CPT/HCPCS: 99396

== ENCOUNTER 2023-06-17 05:57 | Outpatient (REF) | payer OTHER, SELFPAY ==
[2023-06-17 07:05] LABS: Hematocrit 39.7 % (37.0-47.0); Hemoglobin 12.6 g/dl (12.0-16.0); Mean Corpuscular HGB Conc 31.7 g/dl (31.0-35.0); Mean Corpuscular Hemoglobin 29.6 pg (27.0-33.0); Mean Corpuscular Volume 93.2 fL (80.0-98.0); Mean Platelet Volume 9.5 fL (9.4-12.3); Platelet Count 313 X10*3/uL (160-400); Red Blood Count 4.26 X10*6/uL (4.20-5.50); Red Cell Distribution Width 14.9 % (11.0-16.0)
[2023-06-17 07:07] LABS: Estimated Average Glucose 151 mg/dL; Hemoglobin A1c % 6.9 % (<6.0)
[2023-06-17 07:23] LABS: Alanine Aminotransferase 10 U/L (0-31); Alkaline Phosphatase 83 U/L (39-117); Anion Gap 12 (12-20); Aspartate Amino Transferase 14 U/L (5-31); Bilirubin Total 0.5 mg/dL (0.0-1.0); Blood Urea Nitrogen 20 mg/dL (9-16); Calcium 8.6 mg/dL (8.4-10.2); Carbon Dioxide 29 mmol/L (22-29); Chloride 105 mmol/L (96-108); Cholesterol 188 mg/dL (<200); Estimated Glomerular Filt Rate 52; Glucose Fasting 118 mg/dL (60-99); HDL Cholesterol 30 mg/dL (>40); LDL Cholesterol Calculated 132 mg/dL (<100); Potassium 3.6 mmol/L (3.3-5.1); Sodium 142 mmol/L (135-145); Total Protein 7.6 g/dL (6.5-8.0); Triglycerides 130 mg/dL (<150)
[2023-06-17 08:29] LABS: Free T4 (Free Thyroxine) 1.41 ng/dL (0.71-1.85)
[2023-06-17 09:17] LABS: Creatinine Urine 173.69 mg/dL; Microalbum/Creatinine Ratio Ur 7.4 ug/mg cr (<30)
== END 2023-06-17 05:58 | disposition home or self-care (01) ==
LOC: HO.LAB 05:57
PROVIDERS: PCP Internal Medicine; Visit Provider Nurse Practitioner Family
DX: Z13.29 Encounter for screening for other suspected endocrine disorder (principal); Z13.0 Encounter for screening for diseases of the blood and blood-forming organs and certain disorders involving the immune mechanism; Z13.220 Encounter for screening for lipoid disorders; E11.9 Type 2 diabetes mellitus without complications
CPT/HCPCS: 36415; 80053; 80061; 82043; 82570; 83036; 84439; 84443; 85027

== ENCOUNTER 2023-07-03 15:47 | Outpatient (REF) | payer OTHER, SELFPAY | END 2023-07-03 15:48 | disposition home or self-care (01) | LOC: HO.MAMMO 15:47 | PROVIDERS: PCP Nurse Practitioner Family; Visit Provider Nurse Practitioner Family | DX: Z12.31 Encounter for screening mammogram for malignant neoplasm of breast (principal) | CPT/HCPCS: 77063; 77067 ==

== ENCOUNTER → 2023-07-03 16:15 | Outpatient (BNV) | payer OTHER, SELFPAY | PROVIDERS: PCP Nurse Practitioner Family; Visit Provider Radiology Diagnostic Radiology | DX: Z12.31 Encounter for screening mammogram for malignant neoplasm of breast (principal) | CPT/HCPCS: 77063; 77067 ==

== ENCOUNTER 2023-08-28 13:51 | Outpatient (AMB) | payer OTHER, SELFPAY ==
--- NOTE | 2023-08-28 14:06 | MHC.PC.OV ---
Vital Signs 08/28/23 14:08 Height 5 ft 5 in Weight 224 lb 8 oz BMI 37.4 BP 132/84 Blood Pressure Location Lt brachial Position Sitting Pulse 79 Pulse Source Pulse Oximeter Pulse Oximetry (%) 98 Oxygen Delivery Method Room Air Intake Visit Reasons: follow up Intake Note: Patient is here to follow up on DM, Hypothyroidism, Hyperlipidemia . Sheet Metal Technician Required: No System Planning Engineer: Not Required per policy Accompanied by: Self / Same As Patient Allergies Metformin Adverse Reaction (Intermediate, Uncoded 08/28/23 14:43) Rash Medication List - Last Reconciled 08/28/23 by Shiva Hoff MD glipizide 5 mg PO BID hydrochlorothiazide 25 mg PO QAM levothyroxine 125 mcg PO QAM metoprolol tartrate 25 mg PO TID simvastatin 20 mg PO QPM Tobacco use date assessed: 08/28/23 Dental Screening Dental Screen Date: 08/28/23 Did you have a dental visit in the last 12 months?: No Did you have a dental problem in the last 6 months where you did not have access to dental care?: No Was dental information given to patient?: No HPI follow up HPI Details 63-year-old female presents to the office to discuss her chronic medical conditions. Patient is compliant with medications and not reporting any side effects. Since last office visit patient has retired. She takes care of her nephew who has disability at home. Able to function and do all activities of daily living. Has not reduced her thyroid dosage recently. [facility] Medical History Hypothyroidism, unspecified Class 3 severe obesity due to excess calories with body mass index (BMI) of 40.0 to 44.9 in adult Elevated low-density lipoprotein level Benign hypertension Controlled diabetes mellitus Surgical History History of D&C Family History Father Diabetes Hypertension Mother Diabetes Acute kidney failure Hypertension Brother No problems noted. Social History Housing: Apartment Alcohol intake: never Patient Tobacco Use Status: Never used Tobacco e-Cigarette/Vaping Use: Never Used Second Hand Smoke Exposure: No service: No Current occupational status: retired Cognitive needs: No Hearing needs: No Vision needs: Yes (Reading Glasses) Questionnaire PHQ-9 Over the last 2 weeks, how often have you been bothered by any of the following problems? 1. Little interest or pleasure in doing things: not at all 2. Feeling down, depressed, or hopeless: not at all 3. Trouble falling or staying asleep, or sleeping too much: not at all 4. Feeling tired or having little energy: not at all 5. Poor appetite or overeating: not at all 6. Feeling bad about yourself - or that you are a failure or have let yourself or your family down: not at all 7. Trouble concentrating on things, such as reading the newspaper or watching television: not at all 8. Moving or speaking so slowly that other people could have noticed. Or the opposite - being so fidgety or restless that you have been moving around a lot more than usual: not at all 9. Thoughts that you would be better off or of hurting yourself in some way: not at all Total score: 0 Depression Screening Interpretation: Negative Depression Screening Done: Yes Source: Developed by Drs. Omar Tijerina, Jacqui Peterson, Scar Hooker and colleagues, with an educational suleiman from [employer]. Thrive Questionnaire Date Thrive assessed: 08/28/23 I am a: Patient What is your living situation today?: I have a steady place to live Within the past 12 months, did the food you bought not last and you didn't have the money to get more?: Never true Within the past 12 months, did you worry whether your food would run out before you got money to buy more?: Never true Do you have trouble paying for medicines?: No Do you have trouble getting transportation to medical appointments?: No Do you have trouble paying your heating and electricity bill?: No Do you have trouble taking care of your child, family member or friend?: No Do you have trouble with day-to-day activities such as bathing, preparing meals, shopping, managing finances, etc.?: No Are you currently unemployed and looking for a job?: No Are you interested in more education?: No Currently or been in a relationship where the following occur: no concerns reported THRIVE Score: 0 AUDIT C Alcohol Use Questionnaire (AUDIT-C) 1. How often do you have a drink containing alcohol?: Never Total Score: 0 CURTIS-7 AMB Questionnaire CURTIS-7 Date CURTIS - 7 assessed: 08/28/23 Feeling nervous, anxious, or on edge: 0 = Not at all Not being able to stop or control worryin = Not at all Worrying too much about different things: 0 = Not at all Trouble relaxin = Not at all Being so restless that it is hard to sit still: 0 = Not at all Becoming easily annoyed or irritable: 0 = Not at all Feeling afraid as if something awful might happen: 0 = Not at all Total CURTIS-7 score (0-4 normal; 5-9 mild; 10-14 moderate; 15-21 severe): 0 Source: Developed by Drs. Omar Tijerina, Jacqui Peterson, Scar Hooker and colleagues, with an educational suleiman from [employer]. Physical exam (Primary Care) Vital Signs: Last Vital Signs Pulse 79 08/28/23 14:08 BP 132/84 08/28/23 14:08 Pulse Ox 98 08/28/23 14:08 Oxygen Delivery Method Room Air 08/28/23 14:08 BMI result Body Mass Index 37.4 Tobacco/Smoking Status: Tobacco use Status Tobacco use date assessed 08/28/23 08/28/23 14:08 Patient Tobacco Use Status Never used Tobacco 08/28/23 14:08 e-Cigarette/Vaping Use Never Used 08/28/23 14:08 PHQ-9: PHQ-9 Score PHQ-9: Total score 0 08/28/23 14:08 Depression Screening Interpretation: Negative Thrive Assessment: Date of Thrive Assessment Date Thrive assessed 08/28/23 08/28/23 14:08 Currently or been in a relationship where the following occur: no concerns reported Const General: cooperative and healthy appearing Nutritional Appearance: well nourished Orientation/consciousness: patient oriented x3 Limitations: no limitations HENMT Head: Yes normal to inspection Eyes General: appearance normal, both eyes and all related structures Neck Neck: Yes normal visual inspection Chest Chest palpation & inspection: normal palpation of entire chest wall Resp Effort & Inspection: normal respiratory effort Neuro General: patient oriented x3 Assessment and Plan Assessment & Plan (1) Controlled diabetes mellitus: Code(s): E11.9 - Type 2 diabetes mellitus without complications Qualifiers: Diabetes mellitus type: other specified (including ANNE-MARIE) Diabetes mellitus local company intermodal truck driver insulin use: without long-term use Plan: A1c has been ordered. Will call with results. Continue medications at same dosage. (2) Class 2 severe obesity with body mass index (BMI) of 35 to 39.9 with serious comorbidity: Code(s): E66.01 - Morbid (severe) obesity due to excess calories Plan: Counseling on the importance of diet and exercise done. (3) Hypothyroidism, unspecified: Code(s): E03.9 - Hypothyroidism, unspecified Plan: TSH was suppressed. Synthroid dose has been reduced to 100 mcg once a day. 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
[2023-08-28 14:08] VITALS: BP 132/84; PULSE 79; O2SAT 98; BMI 37.4
== END 2023-08-28 14:41 | disposition home or self-care (01) ==
PROVIDERS: PCP Internal Medicine; Visit Provider Internal Medicine
DX: E11.9 Type 2 diabetes mellitus without complications (principal); E66.01 Morbid (severe) obesity due to excess calories; Z68.37 Body mass index [BMI] 37.0-37.9, adult; E03.9 Hypothyroidism, unspecified
CPT/HCPCS: 99214

== ENCOUNTER 2024-03-03 07:53 | Outpatient (REF) | payer OTHER, SELFPAY ==
[2024-03-03 08:47] LABS: Hematocrit 39.9 % (37.0-47.0); Hemoglobin 12.9 g/dl (12.0-16.0); Mean Corpuscular HGB Conc 32.3 g/dl (31.0-35.0); Mean Corpuscular Hemoglobin 28.1 pg (27.0-33.0); Mean Corpuscular Volume 86.9 fL (80.0-98.0); Mean Platelet Volume 9.4 fL (9.4-12.3); Platelet Count 283 X10*3/uL (160-400); Red Blood Count 4.59 X10*6/uL (4.20-5.50); Red Cell Distribution Width 13.5 % (11.0-16.0)
[2024-03-03 08:52] LABS: Estimated Average Glucose 137 mg/dL; Hemoglobin A1c % 6.4 % (<6.0)
[2024-03-03 09:06] LABS: Cholesterol 196 mg/dL (<200); HDL Cholesterol 36 mg/dL (>40); LDL Cholesterol Calculated 134 mg/dL (<100); Triglycerides 133 mg/dL (<150)
[2024-03-03 09:07] LABS: Alanine Aminotransferase 11 U/L (0-31); Albumin Level 4.1 g/dL (3.5-5.0); Alkaline Phosphatase 73 U/L (39-117); Anion Gap 11 (12-20); Aspartate Amino Transferase 15 U/L (5-31); Bilirubin Direct 0.1 mg/dL (0.0-0.5); Bilirubin Total 0.4 mg/dL (0.0-1.0); Blood Urea Nitrogen 16 mg/dL (9-16); Calcium 8.7 mg/dL (8.4-10.2); Carbon Dioxide 29 mmol/L (22-29); Chloride 105 mmol/L (96-108); Cholesterol 197 mg/dL (<200); Estimated Glomerular Filt Rate 58; Glucose Fasting 85 mg/dL (60-99); Glucose Random 85 mg/dL (60-115); HDL Cholesterol 36 mg/dL (>40); LDL Cholesterol Calculated 134 mg/dL (<100); Potassium 3.5 mmol/L (3.3-5.1); Sodium 141 mmol/L (135-145); Total Protein 7.4 g/dL (6.5-8.0); Triglycerides 136 mg/dL (<150)
[2024-03-03 09:21] LABS: TSH reflex Free T4 1.79 uIU/mL (0.32-4.0); Thyroid Stimulating Hormone 1.76 uIU/mL (0.32-4.0)
[2024-03-03 09:48] LABS: Appearance Urine Clear; Color Urine Yellow; Glucose Urine UA Negative (Negative); Leukocyte Esterase Urine Small (1+) (Negative); Nitrite Urine Negative (Negative); PH 6.5 (5.0-9.0); UMIC TRIGGER UA YES; Urine Blood Negative (Negative); Urine Ketones Negative (Negative); Urine Protein Negative (Neg-Trace)
[2024-03-03 10:00] LABS: Bacteria Urine Trace (None Seen); Hyaline Casts Urine 0-2 /LPF (0-2); RBC Urine 0-2 /HPF (0-2); Squamous Epithelial Cell Urine 0-2 /HPF (0-2); WBC Urine 0-5 /HPF (0-5)
[2024-03-03 10:37] LABS: Creatinine Urine 136.57 mg/dL; Microalbum/Creatinine Ratio Ur 4.3 ug/mg cr (<30)
== END 2024-03-03 07:54 | disposition home or self-care (01) ==
LOC: HO.LAB 07:53
PROVIDERS: Nurse Practitioner Family; PCP Internal Medicine; Visit Provider Internal Medicine
DX: E11.9 Type 2 diabetes mellitus without complications (principal); E66.01 Morbid (severe) obesity due to excess calories; Z68.35 Body mass index [BMI] 35.0-35.9, adult; E03.9 Hypothyroidism, unspecified; E78.5 Hyperlipidemia, unspecified
CPT/HCPCS: 36415; 80048; 80053; 80061; 80076; 81001; 82043; 82248; 82570; 83036; 84443; 85027

== ENCOUNTER 2024-03-11 14:12 | Outpatient (AMB) | payer OTHER, SELFPAY ==
--- NOTE | 2024-03-11 14:15 | A.OFFPC_ITS ---
Vital Signs 03/11/24 14:15 03/11/24 14:16 Height 5 ft 5 in 5 ft 5 in Weight 224 lb BMI 37.3 BP 146/80 H Blood Pressure Location Lt brachial Lt brachial Position Sitting Sitting Pulse 75 Pulse Source Pulse Oximeter Pulse Oximeter Pulse Oximetry (%) 99 Oxygen Delivery Method Room Air Room Air Intake Visit Reasons: 6 MONTH F/U Intake Note: Patient here for a 6 month follow up Allergies Metformin Adverse Reaction (Intermediate, Uncoded 03/11/24 15:07) Rash Medication List - Last Reconciled 03/11/24 by Shiva Hoff MD glipizide 5 mg PO BID hydrochlorothiazide 25 mg PO QAM levothyroxine 100 mcg PO DAILY metoprolol tartrate 25 mg PO TID simvastatin 20 mg PO QPM Tobacco use date assessed: 08/28/23 Dental Screening Dental Screen Date: 03/11/24 Did you have a dental visit in the last 12 months?: No Did you have a dental problem in the last 6 months where you did not have access to dental care?: No Was dental information given to patient?: Patient has dentist HPI 6 MONTH F/U HPI Details 63-year-old female presents to the offic e to discuss her chronic medical conditions. Patient is at baseline state of health. Able to function and do all activities of daily living. She is compliant with medications and reporting no side effects. Patient continues to drive and is able to drive at night. Her sister lives with her. She takes care of financial matters herself. No incontinence to urine. Does not check her blood sugars frequently. PENDING SALE TO [facility] Medical History Hypothyroidism, unspecified Class 3 severe obesity due to excess calories with body mass index (BMI) of 40.0 to 44.9 in adult Elevated low-density lipoprotein level Benign hypertension Controlled diabetes mellitus Surgical History History of D&C Family History Father Diabetes Hypertension Mother Diabetes Acute kidney failure Hypertension Brother No problems noted. Social History Housing: Apartment Alcohol intake: never Patient Tobacco Use Status: Never used Tobacco e-Cigarette/Vaping Use: Never Used Second Hand Smoke Exposure: No service: No Current occupational status: retired Cognitive needs: No Hearing needs: No Vision needs: Yes (Reading Glasses) Questionnaire Thrive Questionnaire Date Thrive assessed: 08/28/23 CURTIS-7 AMB Questionnaire CURTIS-7 Date CURTIS - 7 assessed: 08/28/23 Source: Developed by Drs. Omar Tijerina, Jacqui Peterson, Scar Hooker and colleagues, with an educational suleiman from [employer]. Physical exam (Primary Care) Vital Signs: Last Vital Signs Pulse 75 03/11/24 14:16 BP 146/80 H 03/11/24 14:16 Pulse Ox 99 03/11/24 14:16 Oxygen Delivery Method Room Air 03/11/24 14:16 BMI result Body Mass Index 37.3 BMI Assessment/Plan discussion: High (1 lb per week weight loss suggested.) BMI High, discussed plan: lifestyle, weight reduction and dietary Tobacco/Smoking Status: Tobacco use Status Tobacco use date assessed 08/28/23 03/11/24 14:15 Patient Tobacco Use Status Never used Tobacco 03/11/24 14:15 e-Cigarette/Vaping Use Never Used 03/11/24 14:15 Thrive Assessment: Date of Thrive Assessment Date Thrive assessed 08/28/23 03/11/24 14:15 Advance Care Planning discussion: Exists, not on file Date of discussion: 03/11/24 Who was present: Patient Forms completed: Health Care Proxy and MOLST Const General: cooperative and healthy appearing Nutritional Appearance: well nourished Orientation/consciousness: patient oriented x3 Limitations: no limitations HENMT Head: Yes normal to inspection Eyes General: appearance normal, both eyes and all related structures Neck Neck: Yes normal visual inspection Chest Chest palpation & inspection: normal palpation of entire chest wall Resp Effort & Inspection: normal respiratory effort Neuro General: patient oriented x3 Assessment and Plan Assessment & Plan (1) Controlled diabetes mellitus: Code(s): E11.9 - Type 2 diabetes mellitus without complications Qualifiers: Diabetes mellitus type: other specified (including ANNE-MARIE) Diabetes mellitus intermediate card tender insulin use: without intermediate card tender use Plan: A1c is in range. Continue glipizide at same dosage. (2) Class 2 severe obesity with body mass index (BMI) of 35 to 39.9 with serious comorbidity: Code(s): E66.01 - Morbid (severe) obesity due to excess calories Plan: Counseling on the importance of diet and exercise done. (3) Hypothyroidism, unspecified: Code(s): E03.9 - Hypothyroidism, unspecified Plan: TSH is in range. Continue Synthroid at same dosage. (4) Hyperlipidemia LDL goal <100: Code(s): E78.5 - Hyperlipidemia, unspecified Plan: LDL is in range. Continue statins at same dosage. Coding Level of Care Code Est Pt Level 4 (00488) Complex EM visit Add On G2211 Diagnoses Controlled diabetes mellitus E11.9 Diabetes mellitus type: other specified (including ANNE-MARIE) Diabetes mellitus care home insulin use: without care home use Class 2 severe obesity with body mass index (BMI) of 35 to 39.9 with serious comorbidity E66.01 Hypothyroidism, unspecified E03.9 Hyperlipidemia LDL goal <100 E78.5 Additional Codes Vital Signs *Quality* - Advance Care Planning discussion: Exists, not on file ([id number])
[2024-03-11 14:16] VITALS: BP 146/80; PULSE 75; O2SAT 99; BMI 37.3
== END 2024-03-11 14:59 | disposition home or self-care (01) ==
PROVIDERS: PCP Nurse Practitioner Family; Visit Provider Internal Medicine
DX: E11.69 Type 2 diabetes mellitus with other specified complication (principal); E66.01 Morbid (severe) obesity due to excess calories; E03.9 Hypothyroidism, unspecified; Z68.37 Body mass index [BMI] 37.0-37.9, adult; E78.5 Hyperlipidemia, unspecified; Z00.00 Encounter for general adult medical examination without abnormal findings
CPT/HCPCS: 1123F; 99214

== ENCOUNTER 2024-09-30 14:47 | Outpatient (AMB) | payer OTHER, SELFPAY ==
--- NOTE | 2024-09-30 15:00 | A.OFFPC_ITS ---
Vital Signs 09/30/24 15:09 Height 5 ft 5 in Weight 235 lb 2 oz BMI 39.1 BP 110/68 Blood Pressure Location Lt brachial Position Sitting Pulse 73 Pulse Source Pulse Oximeter Temp 97.3 F Temp Source Temporal Artery Scan Pulse Oximetry (%) 97 Oxygen Delivery Method Room Air Intake Visit Reasons: 6mth f/u Intake Note: Patient is here to follow up on DM, HLD. Last Turner Required: No Gaming Associate: Not Required per policy Accompanied by: Self / Same As Patient Allergies Metformin Adverse Reaction (Intermediate, Uncoded 09/30/24 15:08) Rash Tobacco use date assessed: 09/30/24 Fall risk assessment: No Falls in past year Last assessed Fall Risk: 09/30/24 Dental Screening Dental Screen Date: 09/30/24 Did you have a dental visit in the last 12 months?: No Did you have a dental problem in the last 6 months where you did not have access to dental care?: No Was dental information given to patient?: No [facility] Medical History Hypothyroidism, unspecified Class 3 severe obesity due to excess calories with body mass index (BMI) of 40.0 to 44.9 in adult Elevated low-density lipoprotein level Benign hypertension Controlled diabetes mellitus Surgical History History of D&C Family History Father Diabetes Hypertension Mother Diabetes Acute kidney failure Hypertension Brother No problems noted. Social History Housing: Apartment Alcohol intake: never Patient Tobacco Use Status: Never used Tobacco e-Cigarette/Vaping Use: Never Used Second Hand Smoke Exposure: No service: No Current occupational status: retired Cognitive needs: No Hearing needs: No Vision needs: Yes (Reading Glasses) Questionnaire PHQ-9 Over the last 2 weeks, how often have you been bothered by any of the following problems? 1. Little interest or pleasure in doing things: not at all 2. Feeling down, depressed, or hopeless: not at all 3. Trouble falling or staying asleep, or sleeping too much: not at all 4. Feeling tired or having little energy: not at all 5. Poor appetite or overeating: not at all 6. Feeling bad about yourself - or that you are a failure or have let yourself or your family down: not at all 7. Trouble concentrating on things, such as reading the newspaper or watching television: not at all 8. Moving or speaking so slowly that other people could have noticed. Or the opposite - being so fidgety or restless that you have been moving around a lot more than usual: not at all 9. Thoughts that you would be better off or of hurting yourself in some way: not at all Total score: 0 Depression Screening Interpretation: Negative Depression Screening Done: Yes Source: Developed by Drs. Omar Tijerina, Jacqui Peterson, Scar Hooker and colleagues, with an educational suleiman from [employer]. Thrive Questionnaire Date Thrive assessed: 09/30/24 I am a: Patient What is your living situation today?: I have a steady place to live Within the past 12 months, did the food you bought not last and you didn't have the money to get more?: Never true Within the past 12 months, did you worry whether your food would run out before you got money to buy more?: Never true Do you have trouble paying for medicines?: No Do you have trouble getting transportation to medical appointments?: No Do you have trouble paying your heating and electricity bill?: No Do you have trouble taking care of your child, family member or friend?: No Do you have trouble with day-to-day activities such as bathing, preparing meals, shopping, managing finances, etc.?: No Are you currently unemployed and looking for a job?: No Are you interested in more education?: No Please select the resources that you would like help with: None Currently or been in a relationship where the following occur: No concerns reported THRIVE Score: 0 AUDIT C Alcohol Use Questionnaire (AUDIT-C) 1. How often do you have a drink containing alcohol?: Never Total Score: 0 CURTIS-7 AMB Questionnaire CURTIS-7 Date CRUTIS - 7 assessed: 09/30/24 Feeling nervous, anxious, or on edge: 0 = Not at all Not being able to stop or control worryin = Not at all Worrying too much about different things: 0 = Not at all Trouble relaxin = Not at all Being so restless that it is hard to sit still: 0 = Not at all Becoming easily annoyed or irritable: 0 = Not at all Feeling afraid as if something awful might happen: 0 = Not at all Total CURTIS-7 score (0-4 normal; 5-9 mild; 10-14 moderate; 15-21 severe): 0 Source: Developed by Drs. Omar Tijerina, Jacqui Peterson, Scar Hooker and colleagues, with an educational suleiman from [employer]. Physical exam (Primary Care) Vital Signs: Last Vital Signs Temp 97.3 F 09/30/24 15:09 Pulse 73 09/30/24 15:09 BP 110/68 09/30/24 15:09 Pulse Ox 97 09/30/24 15:09 Oxygen Delivery Method Room Air 09/30/24 15:09 BMI result Body Mass Index 39.1 Tobacco/Smoking Status: Tobacco use Status Tobacco use date assessed 09/30/24 09/30/24 15:09 Patient Tobacco Use Status Never used Tobacco 09/30/24 15:03 e-Cigarette/Vaping Use Never Used 09/30/24 15:03 PHQ-9: PHQ-9 Score PHQ-9: Total score 0 09/30/24 15:14 Depression Screening Interpretation: Negative Thrive Assessment: Date of Thrive Assessment Date Thrive assessed 09/30/24 09/30/24 15:03 Currently or been in a relationship where the following occur: No concerns reported Results AMB Hemoglobin A1c AMB Hemoglobin A1c 7.3 % Last Edit by CYNDI Mueller on 09/30/24 15:25 Results Reviewed Results Reviewed: Laboratory Last Values Hgb A1c (Clinic) 7.3 % (4.0-6.0) H 09/30/24 15:09 Coding Level of Care Code Est Pt Level 4 (88255) Complex EM visit Add On G2211 Diagnoses Controlled diabetes mellitus E11.9 Diabetes mellitus petroleum terminal plant operator insulin use: without petroleum terminal plant operator use Diabetes mellitus type: other specified (including ANNE-MARIE) Class 2 severe obesity with body mass index (BMI) of 35 to 39.9 with serious comorbidity E66.01 Assessment & Plan Assessment & Plan (1) Controlled diabetes mellitus: Code(s): E11.9 - Type 2 diabetes mellitus without complications Category: Medical Qualifiers: Diabetes mellitus petroleum terminal plant operator insulin use: without fdc use Diabetes mellitus type: other specified (including ANNE-MARIE) Plan: Jardiance added to the regimen. Continue glipizide at same dosage. (2) Class 2 severe obesity with body mass index (BMI) of 35 to 39.9 with serious comorbidity: Code(s): E66.01 - Morbid (severe) obesity due to excess calories Category: Medical Plan: Counseling on the importance diet and exercise done. Plan History of Present Illness The patient is a 64-year-old female presenting for follow-up on her diabetes management and recent history of an upper respiratory infection. She has noted an increase in her hemoglobin A1c, now greater than 7%, after previously achieving 6.6%. She is currently prescribed glipizide but has experienced intolerance to metformin. Recent assessments highlight elevated blood glucose levels, attributed in part to her recent upper respiratory tract infection, which persisted for two weeks. The patient confirmed negative tests for both influenza and COVID-19. She mentioned a prior mammogram taken last year between February and May and has a follow-up scheduled. Social History - Employment Status: Retired (semi-retired previously due to night shifts) - Exercise: Limited due to recent illness and cold weather; plans to resume - Diet: Attempts to maintain a healthy diet; reducing carbohydrate intake, particularly bread - Family Status: Not explicitly mentioned Review of Systems - General: Reports having a severe cold - Respiratory: Denies influenza and COVID-19, confirmed with tests Physical Exam General: Cooperative and healthy appearing Nutritional Appearance: Well nourished Orientation/consciousness: Patient oriented x3 Limitations: No limitations Head: Normal to inspection General: Appearance normal, both eyes and all related structures Neck: Normal visual inspection Chest: Normal palpation of entire chest wall Respiratory: Normal respiratory effort Neurology: Patient oriented x3 Results - Labs: Elevated Hemoglobin A1c greater than 7% Plan During the visit, we addressed the management of Type 2 Diabetes by introducing Jardiance, since the patient experienced gastrointestinal intolerance with metformin. Coordination for necessary blood work was conducted to reevaluate her glycemic status. The patient?s recent upper respiratory concerns were considered resolved, with negative influenza and COVID-19 tests. We will continue surveillance of her condition and the forthcoming mammogram will be reviewed as planned. Patient was informed and verbally consented to the use of an ambient scribe for clinic note documentation during this visit. Discussion Notes We thoroughly discussed the management of her Type 2 Diabetes, including the inability to tolerate metformin and the addition of Jardiance as an alternative therapeutic option. The patient consented to this adjusted regimen. Subsequent blood work was arranged to monitor changes in glycemic level post-therapy alteration. Additionally, we reviewed preventive measures, reinforcing the importance of regular screenings, such as her pending mammogram. Follow-up care is planned in three months, with assurance for interim guidance as needed. Patient Instructions - Start taking Jardiance as prescribed along with current glipizide - Schedule regular exercise and resume when feasible - Continue with a healthy diet, focusing on reducing bread and carbohydrate intake - Complete ordered blood work for monitoring diabetes - Maintain scheduled appointment for mammogram and follow up if any concerns arise - Report any worsening symptoms or unusual side effects immediately Orders: Orders Lipid Panel Today E11.9 - Type 2 diabetes mellitus without complications, E66.01 - Morbid (severe) obesity due to excess calories Liver Panel Today E11.9 - Type 2 diabetes mellitus without complications, E66.01 - Morbid (severe) obesity due to excess calories Microalbumin, Random (w Creat) Today E11.9 - Type 2 diabetes mellitus without complications, E66.01 - Morbid (severe) obesity due to excess calories Thyroid Stimulating Hormone Today E11.9 - Type 2 diabetes mellitus without complications, E66.01 - Morbid (severe) obesity due to excess calories AMB Hemoglobin A1c Today E11.9 - Type 2 diabetes mellitus without complications Basic Metabolic Panel Today E11.9 - Type 2 diabetes mellitus without complications, E66.01 - Morbid (severe) obesity due to excess calories Complete Blood Count no Diff Today E11.9 - Type 2 diabetes mellitus without complications, E66.01 - Morbid (severe) obesity due to excess calories UA and rflx microscopic Today E11.9 - Type 2 diabetes mellitus without complications, E66.01 - Morbid (severe) obesity due to excess calories Medications: New empagliflozin (Jardiance) 10 mg PO DAILY 90 tabs 0RF
[2024-09-30 15:09] VITALS: BP 110/68; PULSE 73; TEMP 36.3; O2SAT 97; BMI 39.1
--- OUTSIDE RECORDS SUMMARY | 2024-09-30 18:13 | XMS_ITS | Clinical Summary ---
Author Organization [facility] Address [address] [place] [address] Care Team Providers Care Crematory Attendant Name Role Phone Unavailable Primary Care Provider Unavailabl e Social History Tobacco Use Types Packs/Day Years Used Date Smoking Tobacco: Never Assessed Sex and Gender Information Value Date Recorded Sex Assigned at Not on file Gender Identity Not on file Sexual Orientation Not on file Plan of Treatment Health Maintenance Due Date Last Done Comments Hepatitis C Virus Screening 1960 HIV Screening 1973 DTaP/Tdap/Td Vaccines (1 - Tdap) 1979 Pneumococcal Vaccines 50+ (1 of 1 - PCV) 2010 Zoster (Shingles) Vaccine (1 of 2) 2010 COVID-19 Vaccine ( - 2023-2 5 season) 2024 RSV Vaccine 60 years and old er and Patients (1 - 1-dose 75+ series) 2035 Hepatitis B Vaccines Aged Out No long er eligible based on patient's age to complete this topic Pneumococcal Vaccine: Pediat unique (0-5 Years) and At-Risk Patients (6 to 49 Years) Aged Out No longer eligible b ased on patient's age to complete this topic
--- OUTSIDE RECORDS SUMMARY | 2024-09-30 18:13 | XMS_ITS | Encounter Summary ---
Author Organization [facility] Address [address] [place] [address] Care Team Providers Care Stitcher Operator Name Role Phone Unavailable Primary Care Provider Unavailabl e Reason for Visit * Reason Comments Medication Refill Encounter Details Date Type Department Care Team (Late st Contact Info) Description 08/19/[address] [address] Shiva Hoff MD Social History Tobacco Use Types Packs/Day Years Used Date Smoking Tobacco: Never Assessed Sex and Gender Information Value Date Recorded Sex Assigned at Not on file Gender Identity Not on file Sexual Orientation Not on file documented as of this encounter Plan of Treatment Not on file documented as of this encounter Visit Diagnoses Not on filedocumented in this encounter
--- OUTSIDE RECORDS SUMMARY | 2024-09-30 18:13 | XMS_ITS | Encounter Summary ---
Author Organization [facility] Address [address] [place] [id number] Care Team Providers Care Field Broomer Name Role Phone Unavailable Primary Care Provider Unavailabl e Reason for Visit * Reason Comments Medication Refill Encounter Details Date Type Department Care Team (Late st Contact Info) Description 04/14/[address] [address] Shiva Hoff MD Social History Tobacco Use [...]
--- OUTSIDE RECORDS SUMMARY | 2024-09-30 18:13 | XMS_ITS | Encounter Summary ---
Author Organization [facility] Address [address] [place] [id number] Care Team Providers Care Senior Data Analyst Name Role Phone Unavailable Primary Care Provider Unavailabl e Reason for Visit * Reason Comments Medication Refill Encounter Details Date Type Department Care Team (Late st Contact Info) Description 08/19/[address] [address] Shiva Hoff MD Social History Tobacco Use [...]
== END 2024-09-30 15:36 | disposition home or self-care (01) ==
PROVIDERS: PCP Internal Medicine; Visit Provider Internal Medicine
DX: E11.9 Type 2 diabetes mellitus without complications (principal); E66.01 Morbid (severe) obesity due to excess calories; Z68.39 Body mass index [BMI] 39.0-39.9, adult

== ENCOUNTER → 2024-09-30 14:47 | Outpatient (BNVA) | payer OTHER, SELFPAY | PROVIDERS: PCP Internal Medicine; Visit Provider Internal Medicine | DX: E11.9 Type 2 diabetes mellitus without complications (principal); E66.01 Morbid (severe) obesity due to excess calories; Z68.39 Body mass index [BMI] 39.0-39.9, adult; Z79.84 Long term (current) use of oral hypoglycemic drugs | CPT/HCPCS: 83036; 96127 ==

== ENCOUNTER 2025-02-23 15:51 | Outpatient (REF) | payer OTHER, SELFPAY ==
--- OUTSIDE RECORDS SUMMARY | 2025-02-23 16:23 | XMS_ITS | Encounter Summary ---
Author Organization [facility] Address [address] [place] [address] Care Team Providers Care Cannon Fire Direction Specialist Name Role Phone Unavailable Primary Care Provider Unavailabl e Reason for Visit * Reason Comments Medication Refill Encounter Details Date Type Department Care Team (Late st Contact Info) Description 08/19/[address] [address] Shiva Hoff MD Social History Tobacco Use Types Packs/Day Years Used Date Smoking Tobacco: Never Assessed Comments Unknown Sex and Gender Information Value Date Recorded Sex Assigned at Not on file Legal Sex Female 6:25 PM EST Gender Identity Not on file Sexual Orientation Not on file documented as of this encounter Plan of Treatment Not on file documented as of this encounter Visit Diagnoses Not on filedocumented in this encounter
== END 2025-02-23 15:52 | disposition home or self-care (01) ==
LOC: HO.MAMMO 15:51
PROVIDERS: PCP Internal Medicine; Visit Provider Internal Medicine
DX: Z12.31 Encounter for screening mammogram for malignant neoplasm of breast (principal)
CPT/HCPCS: 77063; 77067

== ENCOUNTER → 2025-02-23 16:00 | Outpatient (BNV) | payer OTHER, SELFPAY | PROVIDERS: PCP Internal Medicine; Visit Provider Internal Medicine | DX: Z12.31 Encounter for screening mammogram for malignant neoplasm of breast (principal) | CPT/HCPCS: 77063; 77067 ==

== ENCOUNTER 2025-06-08 09:23 | Outpatient (AMB) | payer OTHER, SELFPAY ==
--- NOTE | 2025-06-08 09:31 | MHC.PC.OV ---
Vital Signs 06/08/25 09:32 Height 5 ft 5 in Weight 226 lb 8 oz BMI 37.7 BP 120/62 Blood Pressure Location Lt brachial Position Sitting Pulse 67 Pulse Source Pulse Oximeter Temp 97.1 F Temp Source Temporal Artery Scan Pulse Oximetry (%) 100 Oxygen Delivery Method Room Air Intake Visit Reasons: annual exam - see comments Intake Note: Patient is here today for a physical. Hospice Clinical Marketer Required: No Ball Worker: Not Required per policy Accompanied by: Self / Same As Patient Allergies Metformin Adverse Reaction (Intermediate, Uncoded 06/08/25 09:32) Rash Tobacco use date assessed: 06/08/25 Fall risk assessment: No Falls in past year Last assessed Fall Risk: 06/08/25 Dental Screening Dental Screen Date: 09/30/24 [facility] Medical History Hypothyroidism, unspecified Class 3 severe obesity due to excess calories with body mass index (BMI) of 40.0 to 44.9 in adult Elevated low-density lipoprotein level Benign hypertension Controlled diabetes mellitus Surgical History History of D&C Family History Father Diabetes Hypertension Mother Diabetes Acute kidney failure Hypertension Brother No problems noted. Social History Housing: Apartment Alcohol intake: never Patient Tobacco Use Status: Never used Tobacco e-Cigarette/Vaping Use: Never Used Second Hand Smoke Exposure: No service: No Current occupational status: retired Cognitive needs: No Hearing needs: No Vision needs: Yes (Reading Glasses) Questionnaire PHQ-9 Over the last 2 weeks, how often have you been bothered by any of the following problems? 1. Little interest or pleasure in doing things: not at all 2. Feeling down, depressed, or hopeless: not at all 3. Trouble falling or staying asleep, or sleeping too much: not at all 4. Feeling tired or having little energy: not at all 5. Poor appetite or overeating: not at all Source: Developed by Drs. Omar Tijerina, Jacqui Peterson, Scar Hooker and colleagues, with an educational suleiman from [employer]. Thrive Questionnaire Date Thrive assessed: 06/06/25 I am a: Patient What is your living situation today?: I have a steady place to live Within the past 12 months, did the food you bought not last and you didn't have the money to get more?: Never true Within the past 12 months, did you worry whether your food would run out before you got money to buy more?: Never true Do you have trouble paying for medicines?: No Do you have trouble getting transportation to medical appointments?: No Do you have trouble paying your heating and electricity bill?: No Do you have trouble taking care of your child, family member or friend?: No Do you have trouble with day-to-day activities such as bathing, preparing meals, shopping, managing finances, etc.?: No Are you currently unemployed and looking for a job?: No Are you interested in more education?: No Please select the resources that you would like help with: None Currently or been in a relationship where the following occur: No concerns reported THRIVE Score: 0 AUDIT C Alcohol Use Questionnaire (AUDIT-C) 1. How often do you have a drink containing alcohol?: Never 3. How often do you have six or more drinks on one occasion?: Never Total Score: 0 CURTIS-7 AMB Questionnaire CURTIS-7 Date CURTIS - 7 assessed: 09/30/24 Feeling nervous, anxious, or on edge: 0 = Not at all Not being able to stop or control worryin = Not at all Worrying too much about different things: 0 = Not at all Trouble relaxin = Not at all Being so restless that it is hard to sit still: 0 = Not at all Becoming easily annoyed or irritable: 0 = Not at all Feeling afraid as if something awful might happen: 0 = Not at all Total CURTIS-7 score (0-4 normal; 5-9 mild; 10-14 moderate; 15-21 severe): 0 Source: Developed by Drs. Omar Tijerina, Jacqui Peterson, Scar Hooker and colleagues, with an educational suleiman from [employer]. Physical exam (Primary Care) Vital Signs: Last Vital Signs Temp 97.1 F 06/08/25 09:32 Pulse 67 06/08/25 09:32 BP 120/62 06/08/25 09:32 Pulse Ox 100 06/08/25 09:32 Oxygen Delivery Method Room Air 06/08/25 09:32 BMI result Body Mass Index 37.7 Tobacco/Smoking Status: Tobacco use Status Tobacco use date assessed 06/08/25 06/08/25 09:39 Patient Tobacco Use Status Never used Tobacco 06/08/25 09:31 e-Cigarette/Vaping Use Never Used 06/08/25 09:31 Thrive Assessment: Date of Thrive Assessment Date Thrive assessed 06/06/25 06/08/25 09:31 Currently or been in a relationship where the following occur: No concerns reported Office Procedures Flu Questionnaire Does the patient have a severe egg allergy?: No Does the patient have severe life threatening allergies?: No Does the patient have a fever or illness today?: No Has the patient ever had Guillain-Cossayuna Syndrome?: No Has the patient ever had any past reaction to a flu shot?: No Results AMB Hemoglobin A1c AMB Hemoglobin A1c 7.5 % Last Edit by CYNDI Mueller on 06/08/25 09:45 Immunizations Fluarix [id number] (PF) 45 mcg (15 mcg x 3)/0.5 mL IM syringe Performing Provider: Shiva Hoff MD [facility] Administered by: CYNDI Portillo on 06/08/25 09:42 Dose Route Admin Location Dispensed Lot Number Expiration Date [facility] [employer] Operator 0.5 mL IM Left Deltoid 0.5 mL [id number] 01/24/26 [id number] [employer] VIS Given Date VIS Provided VIS Publication Date 06/08/25 Single Vaccine 24 Eligibility Eligibility Date Funding Source Not [facility] Eligible 06/08/25 Private Results Reviewed Results Reviewed: Laboratory Last Values Hgb A1c (Clinic) 7.5 % (4.0-6.0) H 06/08/25 09:31 Coding Level of Care Code Est Pt Level 4 (24608) Complex EM visit Add On G2211 Diagnoses Controlled diabetes mellitus E11.9 Diabetes mellitus halfway insulin use: without joint terminal attack controller use Diabetes mellitus type: other specified (including ANNE-MARIE) Assessment & Plan Assessment & Plan (1) Controlled diabetes mellitus: Code(s): E11.9 - Type 2 diabetes mellitus without complications Category: Medical Qualifiers: Diabetes mellitus joint terminal attack controller insulin use: without joint terminal attack controller use Diabetes mellitus type: other specified (including ANNE-MARIE) Plan: History of Present Illness - The patient is a 64-year-old female presenting for a physical examination. - She reports her blood sugar levels have been increasing recently. - She has a history of an adverse reaction to metformin but is agreeable to restarting it at a low dose of 500 mg. - The patient confirms she is up-to-date with her mammogram and colonoscopy screenings. - She reports having already received her flu shot. - She did not complete her blood work that was due in September. 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 - She currently spends time helping her younger sister with her son. - She reports good vision and is able to drive at night without issue. Review of Systems - Constitutional: Denies any concerns. - Endocrine: Reports elevated blood sugars. - Eyes: Reports good vision. Physical Exam General: Cooperative and healthy appearing Nutritional Appearance: Well nourished Orientation/consciousness: Patient oriented x3 Limitations: No limitations Head: Normal to inspection General: Appearance normal, both eyes and all related structures Neck: Normal visual inspection Chest: Normal palpation of entire chest wall Respiratory: Normal respiratory effort Neurology: Patient oriented x3 Results Plan - Restart metformin at a low dose of 500 mg once daily in the morning for hyperglycemia. - Order blood work. - Follow up in 3 months. Discussion Notes I discussed with the patient her report of rising blood sugars. We agreed to restart metformin at a low dose of 500 mg daily, considering her previous adverse reaction. I ordered new blood work and advised her to complete it, as her previous labs from September were not done. We confirmed she is up-to-date on her mammogram and colonoscopy. A follow-up visit is scheduled in 3 months to review her progress and lab results. Patient Instructions - You will restart metformin. - Take one 500 mg pill in the morning. - Please get the blood work done as ordered. - You have already received your flu shot. - We will see you back in the office in 3 months. Orders: Orders AMB Hemoglobin A1c Today E11.9 - Type 2 diabetes mellitus without complications Influenza [id number] Immunization Today Z23 - Encounter for immunization Lipid Panel Today E11.9 - Type 2 diabetes mellitus without complications Thyroid Stimulating Hormone Today E11.9 - Type 2 diabetes mellitus without complications UA and rflx microscopic Today E11.9 - Type 2 diabetes mellitus without complications Basic Metabolic Panel Today E11.9 - Type 2 diabetes mellitus without complications Complete Blood Count no Diff Today E11.9 - Type 2 diabetes mellitus without complications Liver Panel Today E11.9 - Type 2 diabetes mellitus without complications
[2025-06-08 09:32] VITALS: BP 120/62; PULSE 67; TEMP 36.2; O2SAT 100; BMI 37.7
== END 2025-06-08 10:00 | disposition home or self-care (01) ==
LOC: HO.HMCH 09:24
PROVIDERS: PCP Internal Medicine; Visit Provider Internal Medicine
DX: Z23 Encounter for immunization (principal); E11.9 Type 2 diabetes mellitus without complications

== ENCOUNTER → 2025-06-08 09:23 | Outpatient (BNVA) | payer OTHER, SELFPAY | PROVIDERS: PCP Internal Medicine; Visit Provider Internal Medicine | DX: E11.9 Type 2 diabetes mellitus without complications (principal); Z23 Encounter for immunization | CPT/HCPCS: 83036; 90471; 90656 ==